=== PATIENT | female | born 1995 | race Two or more races ===

== ENCOUNTER 2024-12-28 17:14 | Emergency (ER) | payer MEDICAID, SELFPAY ==
[2024-12-28 17:17] VITALS: BP 163/100; PULSE 118; RESP 20; TEMP 37.1; O2SAT 96; BMI 36.8
[2024-12-28 17:31] VITALS: BMI 33.8
--- NOTE | 2024-12-28 17:46 | XR_ITS ---
Examination: Foot, right, 3 views Technique: AP, oblique, lateral views foot, 3 views Date and time of exam: December 28, 2024 1944 hours INDICATIONS: Injured the foot today, foot pain. FINDINGS: No acute fracture. No dislocation No foreign body IMPRESSION: No acute fracture
[2024-12-28 18:07] VITALS: BP 161/86; PULSE 107; RESP 18; TEMP 37.1; O2SAT 98
[2024-12-28 18:39] VITALS: BP 151/68; PULSE 100; RESP 16; TEMP 37.1; O2SAT 98
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
[2024-12-28] MEDS: IBUPROFEN TAB 400 MG TABLET 800 MG PO (20:04)
[2024-12-28] MEDS: ACETAMINOPHEN 500 MG TABLET 1000 MG PO (20:04)
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
== END 2024-12-28 21:06 ==
PROVIDERS: Emergency Provider Emergency Medicine
DX: Z02.89 Encounter for other administrative examinations (principal); S90.31XA Contusion of right foot, initial encounter; Y04.0XXA Assault by unarmed brawl or fight, initial encounter
CPT/HCPCS: 73630; 99283; A9270